=== PATIENT | female | born 1950 | race Caucasian/White ===

== ENCOUNTER → 2016-07-22 | Outpatient (CLI) | payer OTHER | END | disposition home or self-care (01) | LOC: C.PAPS 08:37 | PROVIDERS: ATTEND Obstetrics & Gynecology | DX: Z85.42 Personal history of malignant neoplasm of other parts of uterus (principal); Z08 Encounter for follow-up examination after completed treatment for malignant neoplasm ==

== ENCOUNTER 2024-12-07 14:48 | Observation (INO) ==
--- NOTE | 2024-12-07 15:29 | Emergency Department Note ---
Impression & Plan Atrial flutter with rapid ventricular response, Weakness, Elevated troponin ED Provider Note Provider: Jose Alejandro Ruiz MD CHIEF COMPLAINT: Weakness over the past week HISTORY OF PRESENT ILLNESS: Patient is a 74-year-old female past medical history of diabetes GERD and hypertension presenting here today reporting her the past week been feeling generally fatigued. States she has been feeling somewhat lightheaded. Recently increased her gabapentin to 300 mg daily about a week ago when this started. Has been following with her primary doctor with neuropathy and increase from 200-300 today. States her blood pressure at home's been somewhat low. Denies palpitations or chest pain. Maybe a little bit of dyspnea on exertion but more so lack of energy. No cough or fevers reported. No falls. PAST MEDICAL HISTORY: As noted above MEDICATIONS: Reviewed home medications. SOCIAL HISTORY: PHYSICAL EXAM: GENERAL: alert and oriented in no acute distress on stretcher Head: normocephalic and atraumatic EYES: No injection, discharge or icterus. PERRL, EOMI. NECK: Trachea midline. Supple. ENT: Mucous membranes pink and moist. Pharynx without erythema or exudate. LUNGS: Airway patent. No retractions. Breath sounds clear with good air entry bilaterally. HEART: Regular tachycardic rate and rhythm. No chest wall tenderness ABDOMEN: Soft, obese, and non-tender, without guarding or rebound. SKIN: Acyanotic, warm, dry, without rashes EXTREMITIES: Without swelling, tenderness or deformity NEUROLOGICAL: No focal deficits. No aphasia. No facial droop or slurred speech. Ambulatory. EK bpm atrial flutter without acute ST segment elevation notable with inferior T wave inversions. QTc 464. EK bpm. Normal sinus rhythm. No PVC or PAC. No acute ST some elevation depression QTc 447. CONTINUOUS CARDIAC MONITORING: was ordered and showed a heart rate of 80s-160s bpm in atrial flutter later normal sinus rhythm Patient's laboratory studies and imaging reviewed. Differential includes Infection, dehydration, metabolic abnormality, hypo/hyperglycemia, electrolyte disturbance, anemia, hypoxia, cardiac sources, intracerebral event, toxicologic, neurologic, as well as other pathologies. IMPRESSION/MEDICAL DECISION MAKING: Patient afebrile. No URI symptoms. No cardiac history. Found here to be in rapid atrial flutter. Unclear how long this has been occurring. Least a week of weakness symptoms. Not significantly swollen. Not hypoxic at rest or hypotensive. Is on carvedilol at baseline and states compliance with home medications. This likely explains her symptomatologies. Blood work obtained. Chest x-ray obtained with some cardiomegaly but no evidence of significant fluid overload. Blood work here without anemia. No significant electrolyte abnormalities with creatinine of 1.35 near baseline of 1.2 from records. Thyroid is normal. Negative urinalysis. Troponin elevated at 92.9 likely demand related to her elevated heart rate with a mildly elevated BNP of 221. Given magnesium and metoprolol. Patient shortly thereafter had conversion to a normal sinus rhythm. Was planning for diltiazem drip but this was not instituted as she converted. Discussed with these findings. Likely given her risk factors would need longer- term anticoagulation given the atrial fibrillation. Discussed however given her generalized weakness, unawareness of having symptoms, need for medication alteration from her Coreg to likely metoprolol and her elevated troponin would recommend that we monitor here overnight. She is agreeable with this plan. Deferred anticoagulation again to the hospitalist team. DIAGNOSIS: New onset atrial flutter, elevated troponin DISPOSITION: Hospitalist will evaluate Patient was agreeable with this plan. Past Med/Surg History Problem List (Updated 12/07/24 @ 17:04 by Jose Alejandro Ruiz M.D.) Elevated troponin (Acute) Weakness (Acute) Atrial flutter with rapid ventricular response (Acute) Diabetic neuropathy Obesity Hypertension GERD (gastroesophageal reflux disease) Hypercholesteremia Diabetes mellitus Medical History H/O malignant neoplasm of endometrium gr 1 01/10 Asymptomatic menopausal state Surgical History History of gynecologic surgery Laparoscopy With Excision Of Gynecologic Lesions History of total abdominal hysterectomy and bilateral salpingo-oophorectomy Hx of tonsillectomy S/P tooth extraction History of carpal tunnel surgery H/O left knee surgery H/O dilation and curettage H/O colonoscopy Hx of cholecystectomy History of cataract surgery Family History Father Diabetes Sister Non-Hodgkin lymphoma Mother Dementia Grandfather (Maternal) Myocardial infarction Other Colorectal cancer Ovarian cancer Denies family history of Breast cancer Lung cancer Stroke Social History Smoking Status: Never smoker Second Hand Exposure: No; Do You Dip or Chew Tobacco: No; Hx Alcohol Use: No Hx Substance Use: No Preferred Language: Burmese Communication Ability: Effective Visual Impairment: Diminished Hearing Ability: Normal marital status: Current Living Situation: Spouse current occupational status: retired How many Children do You have: 0 Feels Safe at Home: Yes Childhood Exposure to Second-Hand Smoke: No Diet: regular caffeine: No Dental Care, Regularly: Yes Physical Activity Frequency: Does not Exercise Seatbelt Use: always Sunscreen Use: Yes Assistive Devices: Glasses Allergies Allergies Allergy/AdvReac Type Severity Reaction Status Date / Time codeine Allergy Severe RESP Verified 12/07/24 17:01 DISTRESS meperidine [From Demerol] Allergy Severe RESP Verified 12/07/24 17:01 DISTRESS morphine Allergy Severe RESP Verified 12/07/24 17:01 DISTRESS theophylline Allergy Severe RESP Verified 12/07/24 17:01 DISTRESS Home Meds Home Medications Medication Instructions Recorded Confirmed atorvastatin 80 mg tablet 80 mg PO DAILY 08/08/24 11/14/24 carvedilol 6.25 mg tablet 6.25 mg PO BID 08/08/24 11/14/24 lisinopril 20 1 tab PO DAILY 08/08/24 11/14/24 mg-hydrochlorothiazide 12.5 mg tablet metformin 500 mg tablet,extended 500 mg PO BID 08/08/24 11/14/24 release 24 hr cholecalciferol (vitamin D3) 25 25 mcg PO DAILY 11/14/24 11/14/24 mcg (1,000 unit) capsule insulin glargine 100 unit/mL (3 unit subcut 11/14/24 11/14/24 mL) subcutaneous pen (Lantus Solostar U-100 Insulin) Previous Rx's Medication Instructions Recorded gabapentin 300 mg capsule 300 mg PO QDAY #30 caps 11/14/24 Results & Data (ED) Vital Signs Vital Signs - 24 hr 12/07/24 14:51 12/07/24 15:20 12/07/24 15:20 Temperature 36.4 C L Temperature Source Temporal Artery Scan Pulse Rate 94 H 155 H 168 H Pulse Rate [Right Finger] Pulse Rhythm Regular Pulse Rhythm [Right Finger] Pulse Strength [Right Finger] Respiratory Rate 18 20 Respiratory Effort / Characteristics Non-Labored Spontaneous Respiratory Depth Normal Respiratory Pattern Regular Blood Pressure 126/79 Blood Pressure [Right Arm] Blood Pressure Mean 94 Blood Pressure Mean [Right Arm] Blood Pressure Position Sitting Blood Pressure Position [Right Arm] Pulse Oximetry 95 92 Oxygen Delivery Method Room Air Room Air Sepsis Recent Fever Within 48 Hours No Sepsis New/Unexplained Change in Mental Status No Sepsis Action Taken by Nursing No Action Required 12/07/24 15:30 12/07/24 15:36 12/07/24 15:40 Temperature Temperature Source Pulse Rate 150 H 162 H 153 H Pulse Rate [Right Finger] Pulse Rhythm Pulse Rhythm [Right Finger] Pulse Strength [Right Finger] Respiratory Rate 22 17 Respiratory Effort / Characteristics Respiratory Depth Respiratory Pattern Blood Pressure 118/68 164/111 H Blood Pressure [Right Arm] Blood Pressure Mean 84 128 Blood Pressure Mean [Right Arm] Blood Pressure Position Blood Pressure Position [Right Arm] Pulse Oximetry 95 95 Oxygen Delivery Method Room Air Room Air Sepsis Recent Fever Within 48 Hours Sepsis New/Unexplained Change in Mental Status Sepsis Action Taken by Nursing 12/07/24 16:02 12/07/24 16:34 Temperature Temperature Source Pulse Rate Pulse Rate [Right Finger] 133 H 89 Pulse Rhythm Pulse Rhythm [Right Finger] Regular Pulse Strength [Right Finger] Normal Respiratory Rate 16 18 Respiratory Effort / Characteristics Non-Labored Spontaneous Non-Labored Spontaneous Respiratory Depth Normal Normal Respiratory Pattern Regular Blood Pressure Blood Pressure [Right Arm] 155/104 H 158/91 H Blood Pressure Mean Blood Pressure Mean [Right Arm] 121 113 Blood Pressure Position Blood Pressure Position [Right Arm] Lying Pulse Oximetry 96 98 Oxygen Delivery Method Room Air Room Air Sepsis Recent Fever Within 48 Hours Sepsis New/Unexplained Change in Mental Status Sepsis Action Taken by Nursing Laboratory Data 12/07/24 15:25 12/07/24 15:25 Lab Results 12/07/24 12/07/24 Range/Units 15:25 15:54 WBC 10.32 (4.8-10.8) K/ul RBC 4.77 (4.20-5.40) M/uL Hgb 13.8 (12.0-16.0) g/dl Hct 42.2 (37.0-47.0) % MCV 88.5 (80.0-100.0) fL MCH 28.9 (25.0-34.0) pg MCHC 32.7 (32.0-36.0) g/dL RDW Std Deviation 44.2 (36.4-46.3) fL RDW Coeff of Roshan 13.7 (11.5-14.5) % Plt Count 208 (130-400) K/uL MPV 10.5 (9.4-12.4) fL Immature Gran % (Auto) 0.5 % Neut % (Auto) 68.3 % Lymph % (Auto) 21.0 % Hyde % (Auto) 8.5 % Eos % (Auto) 1.3 % Baso % (Auto) 0.4 % Neut # (Auto) 7.05 H (1.40-6.50) K/uL Lymph # (Auto) 2.17 (1.20-3.40) K/uL Hyde # (Auto) 0.88 H (0.11-0.59) K/uL Eos # (Auto) 0.13 (0.00-0.50) K/uL Baso # (Auto) 0.04 (0.00-0.20) K/uL Immature Gran # (Auto) 0.05 (0.01-0.20) K/uL PT 10.5 (9.0-12.0) Seconds INR 1.0 (0.9-1.1) Sodium 137 (136-145) mmol/L Potassium 4.5 (3.5-5.1) mmol/L Chloride 101 (98-107) mmol/L Carbon Dioxide 26 (21-32) mmol/L Anion Gap 10 (3-11) BUN 25 H (6-23) mg/dl Creatinine 1.35 H (0.6-1.2) mg/dl Est Cr Clr Drug Dosing 46.1 ml/min eGFR 40.98 BUN/Creatinine Ratio 18.5 (10-20) Glucose 124 H (70-99(Fasting)) mg/dl Calcium 9.7 (8.6-10.3) mg/dl Magnesium 1.8 (1.7-2.4) mg/dl Total Bilirubin 0.5 (0.2-1.0) mg/dl AST 23 (13-39) U/L ALT 17 (7-52) U/L Alkaline Phosphatase 81 (34-104) U/L Troponin I High Sens 92.9 H* (0-14) pg/ml B-Natriuretic Peptide 221 H (0-100) pg/ml Total Protein 7.4 (6.0-8.3) gm/dl Albumin 4.0 (3.4-5.0) gm/dl Globulin 3.4 (2.5-4.0) gm/dl Albumin/Globulin Ratio 1.2 (0.9-2) TSH 2.930 (0.300-4.500) uIu/ml Urine Color Yellow Urine Appearance Clear (Clear) Urine pH 6.5 (4.5-7.5) Ur Specific [place] 1.006 (1.000-1.030) Urine Protein Negative (Negative) Urine Glucose (UA) Negative (Negative) Urine Ketones Negative (Negative) Urine Blood Negative (Negative) Urine Nitrite Negative (Negative) Urine Bilirubin Negative (Negative) Urine Urobilinogen Negative (Negative) Ur Leukocyte Esterase Negative (Negative) Urine Comment Administered Medications Discontinued Medications Magnesium Sulfate/Dextrose (Magnesium Sulfate / D5w) 1 gm in 100 mls @ 400 mls/hr IV Q15M [facility] Stop: 12/07/24 15:42 Last Infusion: 12/07/24 15:50 Dose: Infused Documented By: Admin: 12/07/24 15:38 Dose: 400 mls/hr Documented By: juanita Diltiazem HCl 125 mg/ Dextrose 125 mls @ 5 mls/hr IV .Q24H [facility]; Protocol Stop: 01/06/25 15:59 Last Admin: 12/07/24 16:46 Dose: Not Given Documented By: JANET Metoprolol Tartrate (Metoprolol Tartrate 1 Mg/Ml Vial) 5 mg IV NOW STA Stop: 12/07/24 15:29 Last Admin: 12/07/24 15:38 Dose: 5 mg Documented By: juanita Miscellaneous (Stat Iv Infusion Titration Per Protocol) 1 each N/A NOW STA Stop: 12/07/24 15:55 Last Admin: 12/07/24 16:42 Dose: Not Given Documented By: JANET Imaging Data Radiologist's Impression: Chest X-Ray 12/07/24 15:20 Exam: Chest one view portable. Reason for exam: Weakness Previous studies: None FINDINGS: Heart is mildly enlarged. Lungs show no active infiltrate, collapse or edema. No pleural effusion or pneumothorax noted. IMPRESSION: Mild cardiomegaly without CHF. Otherwise negative for acute disease. Electronically signed by Logan Mitchell 12-07-2024 4:01 PM Discharge Plan Visit Data Chief Complaint: Hypotension Stated Complaint: LOW BLOOD PRESSURE, TIRED, FAINT FATIGUE ED Provider: Jose Alejandro Ruiz Discharge Problem: Atrial flutter with rapid ventricular response, Weakness, Elevated troponin Patient Disposition: Being Evaluated by Hospitalist Condition: Fair Forms Stand Alone Forms: [facility] [employer] Prescriptions Prescriptions: No Action atorvastatin 80 mg tablet 80 mg PO DAILY carvedilol 6.25 mg tablet 6.25 mg PO BID lisinopril-hydrochlorothiazide 20-12.5 mg tablet 1 tab PO DAILY metformin 500 mg tablet extended release 24 hr 500 mg PO BID insulin glargine [Lantus Solostar U-100 Insulin] 100 unit/mL (3 mL) insulin pen subcut Rx Instructions: Inject 35 units into the skin every morning and 35 units at bedtime cholecalciferol (vitamin D3) 25 mcg (1,000 unit) capsule 25 mcg PO DAILY gabapentin 300 mg capsule 300 mg PO QDAY Qty: 30 3RF Referrals Referrals: David Charles DO [Primary Care Provider] -
[2024-12-07] MEDS: METOPROLOL TARTRATE 1 MG/ML VIAL IV STA (15:38)
[2024-12-07] MEDS: MAGNESIUM SULFATE / D5W 1 GM/100 ML BAG IV SCH (15:38)
[2024-12-07 15:40] LABS: Hematocrit (blood only) 42.2 % (37.0-47.0); Hemoglobin 13.8 g/dl (12.0-16.0); Immature Granulocytes # (auto) 0.05 K/uL (0.01-0.20); Immature Granulocytes % (auto) 0.5 %; Mean Corpuscular Hemoglobin 28.9 pg (25.0-34.0); Mean Corpuscular Volume 88.5 fL (80.0-100.0); Platelet Count 208 K/uL (130-400); RDW Standard Deviation 44.2 fL (36.4-46.3); Red Blood Count 4.77 M/uL (4.20-5.40); White Blood Count 10.32 K/ul (4.8-10.8)
[2024-12-07 15:57] LABS: Alanine Aminotransferase 17.0 U/L (7-52); Albumin Globulin Ratio 1.2 (0.9-2); Albumin Level 4.0 gm/dl (3.4-5.0); Alkaline Phosphatase 81.0 U/L (34-104); Anion Gap 10.0 (3-11); Bilirubin,Total 0.5 mg/dl (0.2-1.0); Blood Urea Nitrogen 25.0 mg/dl (6-23); Calcium 9.7 mg/dl (8.6-10.3); Carbon Dioxide 26.0 mmol/L (21-32); Chloride 101.0 mmol/L (98-107); Creatinine Clr Calc Pharmacy 46.1 ml/min; Globulin 3.4 gm/dl (2.5-4.0); Glucose 124.0 mg/dl (70-99(Fasting)); Magnesium 1.8 mg/dl (1.7-2.4); Potassium 4.5 mmol/L (3.5-5.1); Sodium 137.0 mmol/L (136-145); Total Protein 7.4 gm/dl (6.0-8.3)
--- NOTE | 2024-12-07 16:01 | XRay Report ---
Exam: Chest one view portable. Reason for exam: Weakness Previous studies: None FINDINGS: Heart is mildly enlarged. Lungs show no active infiltrate, collapse or edema. No pleural effusion or pneumothorax noted. IMPRESSION: Mild cardiomegaly without CHF. Otherwise negative for acute disease. Electronically signed by Logan Mitchell 12-07-2024 4:01 PM
[2024-12-07 16:10] LABS: INR 1.0 (0.9-1.1); Prothrombin Time 10.5 Seconds (9.0-12.0)
[2024-12-07 16:12] LABS: Thyroid Stimulating Hormone 2.93 uIu/ml (0.300-4.500)
[2024-12-07 16:35] LABS: Appearance Urine Clear (Clear); Glucose Urine UA Negative (Negative)
[2024-12-07] MEDS: STAT IV Infusion **Titration per Protocol STA (16:42)
--- NOTE | 2024-12-07 16:48 | History & Physical Report ---
Date of Service December 07, 2024 Assessment & Plan (1) Atrial flutter with rapid ventricular response: (2) Elevated troponin: (3) Hypertension: (4) Diabetes mellitus: (5) Diabetic neuropathy: Plan 74 y/o with HTN and type 2 DM, high risk for ELENA, who was admitted with new onset atrial flutter with rapid ventricular rate. Converted back to NSR after 5 mg metoprolol IV and 1g magnesium IV given in ED # Atrial flutter with rapid ventricular rate # myocardial demand ischemia Experiencing fatigue and low blood pressure readings, with values as low as 70/58. Reports feeling lightheaded and disoriented. Heart rate was between 130 and 150 bpm earlier. Mild troponin elevation without evidence of acute coronary syndrome, chest pain, or acute ischemic changes on EKG. Likely myocardial demand ischemia related to tachyarrhythmia. Diagnostic plan: Echocardiogram will be performed tomorrow to assess heart valves and function. Troponin levels will be monitored until they decrease. TSH was wnl. ELENA evaluation recommended. Treatment plan: Plan to switch from carvedilol to metoprolol for better rate control. 25 mg metoprolol succinate bid starting tonight. Apixaban 5 mg po bid for anticoagulation. Tele monitor Metoprolol 5 mg IV q6h PRN HR>120, if hypotensive with rapid aflutter will use IV amiodarone Clinical decision making: Risks and benefits of anticoagulation discussed Including Significant reduction of stroke risk versus risks of bleeding including gastrointestinal bleeding and intracranial hemorrhage which can be life-threatening or disabling. # Diabetes mellitus Currently on Lantus, Humalog, and metformin. Treatment plan: Insulin ratios will be adjusted slightly during hospital stay for safety. Will continue current diabetes medications. Agree would benefit from tirzepatide, which PMD plans to start if covered by insurance # Diabetic Neuropathy Reports tingling in hands and feet, and feet feel like walking on marshmallows. Taking gabapentin 300 mg in the morning but finds it makes her very tired. Treatment plan: Plan to switch gabapentin dose to 200 mg and take it at night to help with fatigue. # Hypertension Blood pressure usually runs around 150/90. Currently on lisinopril and hydrochlorothiazide twice a day as well as carvedilol. Treatment plan: Plan to hold other blood pressure medications while adjusting metoprolol dose, as it will also affect blood pressure. Lisinopril will be continued long-term for kidney protection in the setting of diabetes. # CKD-3 Cr is at baseline. Recheck BMP in AM. Continue lisinopril on discharge # High risk for ELENA: based on age, hypertension, BMI of 45, anatomy of her neck and lower jaw # Morbid obesity with BMI of 45 Encouraged her to go through with the sleep study since untreated ELENA will complicate treatment for aflutter and can provoke it Another reason she would benefit from tirzepatide # DVT Prophylaxis: pharmacotherapy with apixaban She prefers Full Code Her was accompanying her during this encounter Medical Complexity: Medical decision making was complex, high risk for clinical deterioration morbidity, or mortality for this encounter. Unstable conditions include atrial flutter, hypertension. High risk medications and treatments include IV metoprolol, apixaban. History of Present Illness Chief Complaint: fatigue, dyspnea Primary Care Provider: David Charles DO The patient consented to use of Mingly, an AI based tool that will listen to our encounter and draft a clinical note based on our conversation. All notes will be reviewed and edited by me before entering them into the medical record. Reason for Admit: Atrial flutter. 74 y/o woman with HTN and DM2 but no cardiac history other than remote palpitations that resolved on carvedilol. She reports fatigue over the past week, as well as dyspnea on exertion and lightheadedness. This morning, she noticed a significant drop in her blood pressure, with readings as low as 70/58, although it later increased upon arrival at the hospital. Her usual blood pressure is around 150/90. She reports no palpitations, chest tightness, or pain but did feel lightheaded and disoriented this morning. She has a history of palpitations for which she was prescribed carvedilol, but she has not experienced any cardiac issues since starting this medication. She has no history of stroke or transient ischemic attack. She takes lisinopril and hydrochlorothiazide twice daily. She has diabetes and takes Lantus, Humalog, and metformin. She has neuropathy and experiences tingling in her hands and feet, describing the sensation as if she is walking on marshmallows or bubbles. She also reports balance issues. A neurologist suggested a sleep study due to suspected sleep apnea, but she declined. She was advised to lose weight due to weak joints. She has been attributing fatigue to an increase in gabapentin dosage to 300 mg which she takes for diabetic neuropathy. She feels excessively tired, even in the afternoons, and is considering switching her medication to nighttime due to its sedative effects, as well as reducing the dose. She also mentions frequent diarrhea, which she believes is a side effect of gabapentin. She does not experience constipation, nausea, vomiting, or abdominal pain. She had been taking gabapentin 100 mg, but it was not helping her neuropathy, so she increased it to 200 mg and was doing better with it. However, when she increased it to 300 mg, she felt it was too much. She occasionally experiences leg swelling at night, which she attributes to prolonged sitting. She has a history of knee problems and has received Synvisc injections twice, which provided relief for about six months. However, she continues to experience knee pain. In ED she was found to be in new onset atrial flutter with rates in 130s-150. She has been hypertensive in the ED Ed treated with 5 mg IV metoprolol and magnesium, subsequently converted to NSR Feels better now with no lightheadedness dyspnea or chest pain. Allergies Allergy/AdvReac Type Severity Reaction Status Date / Time codeine Allergy Severe RESP Verified 12/07/24 17:01 DISTRESS meperidine [From Demerol] Allergy Severe RESP Verified 12/07/24 17:01 DISTRESS morphine Allergy Severe RESP Verified 12/07/24 17:01 DISTRESS theophylline Allergy Severe RESP Verified 12/07/24 17:01 DISTRESS Home Medications Medication Instructions Recorded Confirmed Type atorvastatin 80 mg tablet 80 mg PO DAILY 08/08/24 12/07/24 History carvedilol 6.25 mg tablet 6.25 mg PO BID 08/08/24 12/07/24 History lisinopril 20 1 tab PO DAILY 08/08/24 12/07/24 History mg-hydrochlorothiazide 12.5 mg tablet metformin 500 mg tablet,extended 500 mg PO BID 08/08/24 12/07/24 History release 24 hr cholecalciferol (vitamin D3) 25 25 mcg PO DAILY 11/14/24 12/07/24 History mcg (1,000 unit) capsule insulin glargine 100 unit/mL (3 35 unit subcut BID 11/14/24 12/07/24 History mL) subcutaneous pen (Lantus Solostar U-100 Insulin) gabapentin 300 mg capsule 300 mg PO DAILY 12/07/24 12/07/24 History insulin lispro 100 unit/mL 0 unit subcut BID 12/07/24 12/07/24 History subcutaneous pen (Humalog KwikPen (U-100) Insulin) loratadine 10 mg tablet (Claritin) 10 mg PO DAILY 12/07/24 12/07/24 History omeprazole 20 mg capsule,delayed 20 mg PO DAILY 12/07/24 12/07/24 History release Past Med/Surg History Problem List Elevated troponin (Acute) Weakness (Acute) Atrial flutter with rapid ventricular response (Acute) Diabetic neuropathy Obesity Hypertension GERD (gastroesophageal reflux disease) Hypercholesteremia Diabetes mellitus Medical History H/O malignant neoplasm of endometrium gr 1 st 1, 01/10 Asymptomatic menopausal state Surgical History History of gynecologic surgery Laparoscopy With Excision Of Gynecologic Lesions History of total abdominal hysterectomy and bilateral salpingo-oophorectomy Hx of tonsillectomy S/P tooth extraction History of carpal tunnel surgery H/O left knee surgery H/O dilation and curettage H/O colonoscopy Hx of cholecystectomy History of cataract surgery Family History Father Diabetes Sister Non-Hodgkin lymphoma Mother Dementia Grandfather (Maternal) Myocardial infarction Other Colorectal cancer Ovarian cancer Denies family history of Breast cancer Lung cancer Stroke Social History Smoking Status: Never smoker Second Hand Exposure: No; Do You Dip or Chew Tobacco: No; Hx Alcohol Use: No Hx Substance Use: No Preferred Language: Estonian Communication Ability: Effective Visual Impairment: Diminished Hearing Ability: Normal marital status: Current Living Situation: Spouse current occupational status: retired How many Children do You have: 0 Feels Safe at Home: Yes Childhood Exposure to Second-Hand Smoke: No Diet: regular caffeine: No Dental Care, Regularly: Yes Physical Activity Frequency: Does not Exercise Seatbelt Use: always Sunscreen Use: Yes Assistive Devices: Glasses Review of Systems 2 Review of Systems: All systems reviewed & are unremarkable except as noted in HPI & below Physical Exam 2 Physical Exam: General Appearance: Normal. Vital signs: Within normal limits. HEENT: large neck with some cushingoid appearance Respiratory: Lungs clear with mild crackles in the left base. Cardiovascular: Regular heart sounds with occasional premature beat. No murmurs. Gastrointestinal: No tenderness. Bowel sounds present. Extremities: Mild ankle edema. Lower extremities warm and well perfused. Skin: Warm and dry with no rashes. Neurological: Normal. Psychiatric: Normal. Results & Data Results & Data Vital Signs (Past 12 Hours) Vital Signs Temp Pulse Pulse Resp BP BP Pulse Ox 12/07/24 16:34 89 18 158/91 H 98 12/07/24 16:02 133 H 16 155/104 H 96 12/07/24 15:40 153 H 12/07/24 15:36 162 H 17 164/111 H 95 12/07/24 15:30 150 H 22 118/68 95 12/07/24 15:20 168 H 20 92 12/07/24 15:20 155 H 12/07/24 14:51 36.4 C L 94 H 18 126/79 95 O2 Del Method 12/07/24 16:34 Room Air 12/07/24 16:02 Room Air 12/07/24 15:40 12/07/24 15:36 Room Air 12/07/24 15:30 Room Air 12/07/24 15:20 Room Air 12/07/24 15:20 12/07/24 14:51 Room Air Laboratory Results - Laboratory Studies: - Troponin: Mild elevation to 90 12/07/24 15:25 12/07/24 15:25 Cr is close to previous one in the record which was 1.2 - Imaging: CXR - personally reviewed CXR - clear with mild cardiomegaly - EKG: personally reviewed tracing - rapid atrial flutter with variable block PG Care Time/CCT Total # of Minutes Spent Total Time Spent with Patient: Total time spent is greater than 50% in coordination of care (as documented) at patient's floor/unit and/or counseling patient: Coding Level of Care Code 87228 INT INP/OBS CARE 3/75MIN Diagnoses Atrial flutter with rapid ventricular response I48.92 Elevated troponin R79.89 Hypertension I10 Diabetes mellitus E11.9 Diabetic neuropathy E11.40
[2024-12-07] MEDS ORDERED: GABAPENTIN 100 MG CAP PO PRN (19:02)
[2024-12-07] MEDS ORDERED: GLUCOSE 40% GEL 15 GM TUBE PO PRN (19:02)
[2024-12-07] MEDS ORDERED: ONDANSETRON INJ 2 MG/ML 2 ML VIAL IV PRN (19:02)
[2024-12-07] MEDS ORDERED: MAGNESIUM HYDROXIDE SUSP 30 ML UDC PO PRN (19:02)
[2024-12-07] MEDS ORDERED: GLUCOSE 10 TAB/TUBE PO PRN (19:02)
[2024-12-07] MEDS ORDERED: METOPROLOL TARTRATE 1 MG/ML VIAL IV PRN (19:02)
[2024-12-07] MEDS ORDERED: MELATONIN 3 MG TAB PO PRN (19:02)
[2024-12-07] MEDS ORDERED: ALUMINUM/MAGNESIUM SUSP 30 ML UDC PO PRN (19:02)
[2024-12-07] MEDS ORDERED: CARBOHYDRATES FOR HYPOGLYCEMIA PO PRN (19:02)
[2024-12-07] MEDS ORDERED: POLYETHYLENE (MIRALAX) 17 GM PACK PO PRN (19:02)
[2024-12-07] MEDS ORDERED: ACETAMINOPHEN 325 MG TAB PO PRN (19:02)
[2024-12-07] MEDS ORDERED: GLUCAGON FOR INJ 1 MG VIAL SQ PRN (19:02)
[2024-12-07] MEDS ORDERED: DEXTROSE 50% 50 ML SYRINGE IV PRN (19:02)
[2024-12-07] MEDS: GABAPENTIN 100 MG CAP PO SCH (19:37)
[2024-12-07] MEDS: METOPROLOL SUCC 25MG EXT REL TAB PO SCH (19:51)
[2024-12-07] MEDS: APIXABAN 5 MG TABLET PO SCH (19:52)
[2024-12-07] MEDS: LANTUS PER UNIT CHARGE SC SCH (20:47)
[2024-12-07] MEDS: INSULIN ASPART PER UNIT CHARGE SC SCH (20:48)
[2024-12-08 03:58] VITALS: RESP 18
[2024-12-08 07:23] LABS: Anion Gap 8.0 (3-11); Blood Urea Nitrogen 24.0 mg/dl (6-23); Calcium 9.2 mg/dl (8.6-10.3); Carbon Dioxide 30.0 mmol/L (21-32); Chloride 101.0 mmol/L (98-107); Creatinine Clr Calc Pharmacy 49.5 ml/min; Glucose 153.0 mg/dl (70-99(Fasting)); Magnesium 2.0 mg/dl (1.7-2.4); Potassium 4.2 mmol/L (3.5-5.1); Sodium 139.0 mmol/L (136-145)
[2024-12-08 07:55] LABS: Hemoglobin A1C 7.9 % (4.5-5.6)
[2024-12-08] MEDS: MAGNESIUM OXIDE 400 MG TAB PO SCH (08:17)
[2024-12-08] MEDS: ATORVASTATIN 40 MG TAB PO SCH (08:17)
--- NOTE | 2024-12-08 11:35 | XCELERA ---
[id number]
--- NOTE | 2024-12-08 11:53 | Electrocardiogram Report ---
Test Reason : Blood Pressure : */* mmHG Vent. Rate : 144 BPM Atrial Rate : 277 BPM P-R Int : * ms QRS Dur : 72 ms QT Int : 300 ms P-R-T Axes : 263 -6 -8 degrees QTcB Int : 464 ms Atrial flutter with variable A-V block Inferior infarct , age undetermined Abnormal ECG No previous ECGs available Confirmed by George Hernandez ([id number]) on 12/08/2024 11:53:08 AM Referred By: Confirmed By: George Hernandez
[2024-12-08 12:17] VITALS: PULSE 80; TEMP 97.9; O2SAT 91
--- NOTE | 2024-12-08 13:14 | Discharge Summary ---
Discharge Summary Date of Service December 08, 2024 Principal Dx & Hospital Course #1 = Principal Diagnosis (1) Atrial flutter with rapid ventricular response: (2) Elevated troponin: (3) Hypertension: (4) Diabetes mellitus: (5) Diabetic neuropathy: Plan 74 y/o with HTN and type 2 DM, high risk for ELENA, who was admitted with new onset atrial flutter with rapid ventricular rate. Converted back to NSR after 5 mg metoprolol IV and 1g magnesium IV given in ED reports improvement with no further episodes of atrial flutter after she converted in the ED yesterday. She slept well and has not experienced lightheadedness. feels significantly better. Tolerating metoprolol administered last night and this morning. # Atrial flutter with rapid ventricular rate - converted in ED and did not recur # myocardial demand ischemia related to tachyarrhythmia - mild elevation of HS- trop downtrending, no chest pain, no evidence of ACS - changed carvedilol to toprol XL 25 mg bid for more rate control - dose can be titrated up as outpatient - started apixaban. counseled wrt risks:benefits yesterday and today - TTE reviewed - no rwma's, normal EF, mild MR - started mag supplement for low normal magnesium related to PPI and metformin - home pack given since pharmacy not open until AM - referring to cardiology clinic for follow up # Diabetes mellitus Currently on Lantus, Humalog, and metformin. Continue Agree would benefit from tirzepatide, which PMD plans to start if covered by insurance # Diabetic Neuropathy Reports tingling in hands and feet, and feet feel like walking on marshmallows. Taking gabapentin 300 mg in the morning but finds it makes her very tired. Treatment plan: Plan to switch gabapentin dose to 200 mg and take it at night to help with fatigue. # Hypertension Blood pressure usually runs around 150/90. Currently on lisinopril and hydrochlorothiazide twice a day as well as carvedilol. Treatment plan: carvedilol changed to metoprolol, continue lisinopril-HCTZ, follow up in primary care # CKD-3 Cr is at baseline. Cont lisinopril # High risk for ELENA: based on age, hypertension, BMI of 45, anatomy of her neck and lower jaw # Morbid obesity with BMI of 45 Encouraged her to go through with the sleep study since untreated ELENA will complicate treatment for aflutter and can provoke it Another reason she would benefit from tirzepatide Admission HPI Per Admitting Provider The patient consented to use of August, an AI based tool that will listen to our encounter and draft a clinical note based on our conversation. All notes will be reviewed and edited by me before entering them into the medical record. Reason for Admit: Atrial flutter. 74 y/o woman with HTN and DM2 but no cardiac history other than remote pal pitations that resolved on carvedilol. She reports fatigue over the past week, as well as dyspnea on exertion and lightheadedness. This morning, she noticed a significant drop in her blood pressure, with readings as low as 70/58, although it later increased upon arrival at the hospital. Her usual blood pressure is around 150/90. She reports no palpitations, chest tightness, or pain but did feel lightheaded and disoriented this morning. She has a history of palpitations for which she was prescribed carvedilol, but she has not experienced any cardiac issues since starting this medication. She has no history of stroke or transient ischemic attack. She takes lisinopril and hydrochlorothiazide twice daily. She has diabetes and takes Lantus, Humalog, and metformin. She has neuropathy and experiences tingling in her hands and feet, describing the sensation as if she is walking on marshmallows or bubbles. She also reports balance issues. A neurologist suggested a sleep study due to suspected sleep apnea, but she declined. She was advised to lose weight due to weak joints. She has been attributing fatigue to an increase in gabapentin dosage to 300 mg which she takes for diabetic neuropathy. She feels excessively tired, even in the afternoons, and is considering switching her medication to nighttime due to its sedative effects, as well as reducing the dose. She also mentions frequent diarrhea, which she believes is a side effect of gabapentin. She does not experience constipation, nausea, vomiting, or abdominal pain. She had been taking gabapentin 100 mg, but it was not helping her neuropathy, so she increased it to 200 mg and was doing better with it. However, when she increased it to 300 mg, she felt it was too much. She occasionally experiences leg swelling at night, which she attributes to prolonged sitting. She has a history of knee problems and has received Synvisc injections twice, which provided relief for about six months. However, she continues to experience knee pain. In ED she was found to be in new onset atrial flutter with rates in 130s-150. She has been hypertensive in the ED Ed treated with 5 mg IV metoprolol and magnesium, subsequently converted to NSR Feels better now with no lightheadedness dyspnea or chest pain. Discharge Exam General Appearance: Normal. Vital signs: Within normal limits. HEENT: Within normal limits. Respiratory: Lungs clear anteriorly and posteriorly. Cardiovascular: Normal heart sounds, no murmurs. Extremities: No lower extremity edema. Skin: Warm and dry, no rash. Neurological: Normal. Psychiatric: Normal. Discharge Plan Discharge Items Patient Disposition: Home - Self-Care Reason For Visit: AFLUTTER Discharge Diagnosis: Atrial Flutter, new onset Condition on Discharge: Good Activity: Resume your previous activity Non-emergency contact: Primary Care Provider and Outside Repairer Special Call non-emergency contact if: you have any medication questions Follow-up/Referrals: George Hernandez MD [Physician] - Davdi Charles DO [Primary Care Provider] - 12/12/24 2:00 pm Diet: Carb Consistent or DM2 Addtl Attending Provider Instructions: You were found to have an arrhythmia called atrial flutter - this can cause your heart rate to go fast, which can result in low blood pressure, fatigue, lightheadedness Your heart Echo was pretty normal - only some mild mitral valve regurgitation, which would not cause atrial flutter Thyroid testing (TSH) was normal Sleep apnea is a risk factor for atrial fibrillation and atrial flutter - I strongly advise you to follow up with sleep medicine for sleep apnea evaluation. Treating this could prevent or lessen the a-flutter and reduces your risk of heart attack, heart failure and stroke. We started medicine called metoprolol to help control the heart rate - this replaces the carvedilol Atrial fibrillation and atrial flutter are associated with increased risk for stroke. Based on your age and medical history your risk for stroke is around 7% per year with atrial flutter, which is high. We started a new medicine called Eliquis to prevent stroke - this is a blood thinner that reduces your stroke risk to baseline (as if you didn't have aflutter). We discussed the risks and benefits of a blood thinner (anticoagulation), including the risks of gastrointestinal bleeding - seek medical attention if you have black/tarry or bloody stool. There is also a very small but real risk of intracranial hemorrhage - related to head trauma or bleeding-type stroke, that can be life threatening. Call 911 if you have altered mental status or symptoms of stroke (weakness or numbness of face/arm/leg, trouble speaking or understanding, trouble with walking/balance Cardiologists recommend blood thinner in your case because the risk of stroke is much higher than the risk of severe bleeding Do not take NSAID medications (motrin/advil/ibuprofen, aleve/naproxen) while taking blood thinner because they increase the risk of gastrointestinal bleeding. Acetaminophen is safe to take as directed and will not bother your stomach or kidneys. You can resume your lisinopril-HCTZ Try taking a magnesium supplement - these are over the counter. You can try magnesium oxide 400 mg daily. If that causes diarrhea, try "Slo-Mag" or extended release magnesium 1 tab daily. Some people take it at bedtime, it can help with sleep. I made a referral to cardiology for follow up. Get evaluated in the ER if you are having low blood pressure, or symptomatic episode of aflutter that lasts more than a brief time It was a pleasure taking care of you in the hospital, Amy Brush MD Pending Studies at Discharge: No Stand-Alone Forms: My [facility] [place] [employer], Smoking Cessation Medications and DC Order Prescriptions: New magnesium oxide 400 mg (241.3 mg magnesium) Tablet 400 mg PO QAM Qty: 0 0RF gabapentin 100 mg Capsule 200 mg PO HS PRNQty: 0 0RF metoprolol succinate 25 mg Tablet Extended Release 24 Hr 25 mg PO BID Qty: 60 0RF Eliquis 5 mg Tablet 5 mg PO BID Qty: 60 0RF Continued atorvastatin 80 mg tablet 80 mg PO DAILY lisinopril-hydrochlorothiazide 20-12.5 mg tablet 1 tab PO DAILY metformin 500 mg tablet extended release 24 hr 500 mg PO BID insulin glargine [Lantus Solostar U-100 Insulin] 100 unit/mL (3 mL) insulin pen 35 unit subcut BID Rx Instructions: Inject 35 units into the skin every morning and 35 units at bedtime cholecalciferol (vitamin D3) 25 mcg (1,000 unit) capsule 25 mcg PO DAILY insulin lispro [Humalog KwikPen Insulin] 100 unit/mL insulin pen 0 unit SUBCUT BID Rx Instructions: TAKES 20 UNITS QAM, THEN 22 UNITS QPM. omeprazole 20 mg Capsule,Delayed Release(Dr/Ec) 20 mg PO DAILY loratadine [Claritin] 10 mg Tablet 10 mg PO DAILY Discontinued carvedilol 6.25 mg tablet 6.25 mg PO BID gabapentin 300 mg capsule 300 mg PO DAILY Rx Instructions: PER PT "GOING TO BE WEANING OFF THIS MED, DECREASING TO 200 MG". Discharge Orders: Discharge Order (Routine); Ordered 12/08/24 Ordered By: Amy Bran/Other Patient Handouts: Apixaban Oral Tablet, Metoprolol Extended Release Oral Tablet, Managing Type 2 Diabetes Admission Data Admit Date/Time: 12/07/24 17:20 Attending Provider: Amy Brush Admit Provider: Amy Brush Primary Care Provider: David Charles Other Providers: Amy Brush Other Interventions: Discharge Summary Assessment (RN) Last Done: 12/08/24 13:57 Hospital Stay Data Consultations 12/07/24 16:44 ED Decision to Admit Stat Pending Results Patient Have Any Pending Studies at Discharge: No Discharge Instructions Given to Patient (Per Discharging Provider) You were found to have an arrhythmia called atrial flutter - this can cause your heart rate to go fast, which can result in low blood pressure, fatigue, lightheadedness Your heart Echo was pretty normal - only some mild mitral valve regurgitation, which would not cause atrial flutter Thyroid testing (TSH) was normal Sleep apnea is a risk factor for atrial fibrillation and atrial flutter - I strongly advise you to follow up with sleep medicine for sleep apnea evaluation. Treating this could prevent or lessen the a-flutter and reduces your risk of heart attack, heart failure and stroke. We started medicine called metoprolol to help control the heart rate - this replaces the carvedilol Atrial fibrillation and atrial flutter are associated with increased risk for stroke. Based on your age and medical history your risk for stroke is around 7% per year with atrial flutter, which is high. We started a new medicine called Eliquis to prevent stroke - this is a blood thinner that reduces your stroke risk to baseline (as if you didn't have aflutter). We discussed the risks and benefits of a blood thinner (anticoagulation), including the risks of gastrointestinal bleeding - seek medical attention if you have black/tarry or bloody stool. There is also a very small but real risk of intracranial hemorrhage - related to head trauma or bleeding-type stroke, that can be life threatening. Call 911 if you have altered mental status or symptoms of stroke (weakness or numbness of face/arm/leg, trouble speaking or understanding, trouble with walking/balance Cardiologists recommend blood thinner in your case because the risk of stroke is much higher than the risk of severe bleeding Do not take NSAID medications (motrin/advil/ibuprofen, aleve/naproxen) while taking blood thinner because they increase the risk of gastrointestinal bleeding. Acetaminophen is safe to take as directed and will not bother your stomach or kidneys. You can resume your lisinopril-HCTZ Try taking a magnesium supplement - these are over the counter. You can try m agnesium oxide 400 mg daily. If that causes diarrhea, try "Slo-Mag" or extended release magnesium 1 tab daily. Some people take it at bedtime, it can help with sleep. I made a referral to cardiology for follow up. Get evaluated in the ER if you are having low blood pressure, or symptomatic episode of aflutter that lasts more than a brief time It was a pleasure taking care of you in the hospital, Amy Brush MD Total Time Total Time Spent Total Time Spent (In Minutes): I personally spent: 40 minutes today on clinical care activities including: reviewing chart notes and vital signs reviewing labs reviewing studies examining and counseling the patient counseling the patient's family, at bedside writing orders writing prescriptions, discharge instructions documentation Coding Level of Care Code 97617 INP/OBS DISCH >30 MIN Diagnoses Atrial flutter with rapid ventricular response I48.92 Elevated troponin R79.89 Hypertension I10 Diabetes mellitus E11.9 Diabetic neuropathy E11.40
[2024-12-08 13:58] VITALS: BP 114/63
[2024-12-08] MEDS ORDERED: Nursing to Pharmacy Communication SCH (14:30)
[2024-12-08] MEDS ORDERED: APIXABAN 5 MG TABLET PO SCH (21:00)
[2024-12-08] MEDS ORDERED: METOPROLOL SUCC 25MG EXT REL TAB PO SCH (21:00)
--- NOTE | 2024-12-12 15:13 | Electrocardiogram Report ---
Test Reason : Blood Pressure : */* mmHG Vent. Rate : 90 BPM Atrial Rate : 90 BPM P-R Int : 180 ms QRS Dur : 90 ms QT Int : 366 ms P-R-T Axes : 40 -3 23 degrees QTcB Int : 447 ms Normal sinus rhythm Cannot rule out Inferior infarct (cited on or before 07-Dec-2024) Abnormal ECG When compared with ECG of 07-Dec-2024 15:15, Sinus rhythm has replaced Atrial flutter Vent. rate has decreased by [address] no longer depressed in Inferior leads ST elevation has replaced ST depression in Anterolateral leads Confirmed by George Hernandez ([id number]) on 12/12/2024 3:13:00 PM Referred By: REFERRED SELF Confirmed By: George Hernandez
== END 2024-12-08 15:03 | disposition home or self-care (01) ==
LOC: 2E 14:48 → ED 14:48 → 2E 18:00